=== PATIENT | male | born 1960 | race Caucasian/White ===

== ENCOUNTER 2020-11-05 12:32 | Emergency (ER) | payer MEDICAID ==
[~2020-11-05] VITALS: Ht 185.4 cm; Wt 93.2 kg
== END 2020-11-05 13:49 | disposition home or self-care (01) ==
LOC: ER 12:32
DX: Z20.828 Contact with and (suspected) exposure to other viral communicable diseases (principal); Z88.8 Allergy status to other drugs, medicaments and biological substances
CPT/HCPCS: 36415; 87635; 99283

== ENCOUNTER 2021-08-16 09:39 | Emergency (ER) | payer MEDICAID ==
[~2021-08-16] VITALS: Ht 185.4 cm; Wt 97.9 kg
[2021-08-16 09:49] VITALS: BP 141/90
[2021-08-16 10:25] LABS: CLARITY,URINE CLEAR (Clear); COLOR,URINE STRAW (Yellow); GLUCOSE, URINE NEGATIVE (Neg); KETONES,URINE NEGATIVE (Neg); LEUKOCYTE ESTERASE ,URINE TRACE (Neg); NITRITES, URINE NEGATIVE (Neg); OCCULT BLOOD,URINE NEGATIVE (Neg); PROTEIN,URINE NEGATIVE (Neg); UA COLLECTION TYPE CLN CATCH MIDSTREAM; UROBILINOGEN,URINE 0.2 E.U/dL (0.2-1.0)
[2021-08-16 10:30] LABS: BACTERIA,URINE NONE SEEN /HPF (Neg); RBC,URINE 0-2 /HPF (0-2); SQUAMOUS EPITHELIAL CELL,UR NONE SEEN /LPF (FEW); WBC CLUMPS,URINE FEW /HPF (NEGATIVE)
[2021-08-16] MEDS ORDERED: DOXY100C43 PO (10:47)
[2021-08-16] MEDS ORDERED: DOXYCYCLINE 100MG CAPSULE PO ONE (10:50)
[2021-08-16] MEDS ORDERED: CefTRIAXone 1000mg IM Kit (w/lidocaine diluent) IM SCH (10:50)
== END 2021-08-16 11:06 | disposition home or self-care (01) ==
LOC: ER 09:41
DX: R30.0 Dysuria (principal); R36.9 Urethral discharge, unspecified; Z11.3 Encounter for screening for infections with a predominantly sexual mode of transmission; Z88.8 Allergy status to other drugs, medicaments and biological substances; Z79.2 Long term (current) use of antibiotics
CPT/HCPCS: 36415; 81001; 87088; 87491; 87591; 96372; 99283; J0696